=== PATIENT | male | born 1980 | race African-American/Black ===

== ENCOUNTER 2018-03-02 09:05 | Emergency (ER) | payer OTHER ==
[~2018-03-02] VITALS: Ht 162.6 cm; Wt 102.6 kg
[~2018-03-02 09:05] MED LIST: FLEXERIL5 MG PO; HYDROCHLOROTH12.5 M3 PO; LISINOPRIL5 MG PO; NAPROSYN500 MG PO; TRAMADOL HCL50 MG PO
[2018-03-02 09:55] LABS: APPEARANCE CLEAR ((CLEAR)); BILIRUBIN NEGATIVE; BLOOD LARGE; COLOR YELLOW ((YELLOW)); GLUCOSE (STRIP) NEGATIVE; KETONES NEGATIVE; LEUKOCYTES TRACE; NITRITE NEGATIVE; PROTEIN (STRIP) NEGATIVE; UROBILINOGEN 0.2 MG/DL (0.2-1.0)
[2018-03-02 10:03] LABS: BACTERIA RARE /HPF; EPITHELIAL CELLS RARE /HPF; MUCUS TRACE /LPF; RED BLOOD CELLS TNTC /HPF (0-5); UCUL ADDED? YES
[2018-03-02 10:08] LABS: HEMATOCRIT 41.3 % (38.0-50.0); HEMOGLOBIN 14.3 G/DL (12.5-16.6); MCH 31.9 PG (29.0-34.0); MCHC 34.6 G/DL (30.0-36.0); MCV 92.2 FL (86-99); PLATELET COUNT 270 K/uL (156-360); RBC DIS.WIDTH-CV 12.2 % (11.8-14.6); RBC DIS.WIDTH-SD 41.4 % (39-53); RED BLOOD COUNT 4.48 M/uL (4.00-5.50); WHITE BLOOD COUNT 6.8 K/uL (4.1-10.2)
[2018-03-02 10:25] LABS: CHLORIDE 106 mEq/L (99-109); POTASSIUM 4.4 mEq/L (3.7-5.4); SODIUM 139 mEq/L (136-147)
[2018-03-02 10:27] LABS: GLUCOSE 131 mg/dL (70-99)
[2018-03-02 10:31] LABS: CREATININE 1.2 mg/dL (0.6-1.3); GFR ESTIMATE (CALCULATED) > 59 mL/min/ (58.99-99999)
[2018-03-02 10:32] LABS: UREA NITROGEN (BUN) 26 mg/dL (9-23)
[2018-03-02 14:07] VITALS: BP 135/84
== END 2018-03-02 14:08 | disposition home or self-care (01) ==
LOC: EME 09:05
DX: R31.9 Hematuria, unspecified (principal); R30.0 Dysuria; R21 Rash and other nonspecific skin eruption; K76.0 Fatty (change of) liver, not elsewhere classified; R23.4 Changes in skin texture; L98.6 Other infiltrative disorders of the skin and subcutaneous tissue; I10 Essential (primary) hypertension; F17.200 Nicotine dependence, unspecified, uncomplicated; Z87.39 Personal history of other diseases of the musculoskeletal system and connective tissue; Z91.018 Allergy to other foods
CPT/HCPCS: 74176; 80048; 81003; 85027; 87086; 99281; 99284; J1885